=== PATIENT | female | born 1970 | race Caucasian/White ===

== ENCOUNTER → 2023-12-30 15:12 | Outpatient (REF) | payer OTHER, SELFPAY | LOC: HWRAD 15:12 | PROVIDERS: ATTENDING PHYSICIAN Obstetrics & Gynecology; FAMILY PHYSICIAN Family Medicine | DX: N92.4 Excessive bleeding in the premenopausal period (principal) | CPT/HCPCS: 76830; 76856 ==

== ENCOUNTER 2024-01-20 06:21 | Day surgery (SDC) | payer OTHER, SELFPAY ==
[2024-01-20] VITALS (8 sets, daily range): BP systolic 96–118; BP diastolic 49–71; BMI 23.7
[2024-01-20] MEDS: TYLENOL 1000 MG PO (08:50)
[2024-01-20] MEDS: NORMOSOL-R 1000 IV (09:08)
== END 2024-01-20 11:56 | disposition home or self-care (01) ==
LOC: SDS 06:21
PROVIDERS: ATTENDING PHYSICIAN Obstetrics & Gynecology
DX: N93.9 Abnormal uterine and vaginal bleeding, unspecified (principal)
CPT/HCPCS: 58558; 88305

== ENCOUNTER → 2024-09-25 08:13 | Outpatient (REF) | payer OTHER, SELFPAY | LOC: HWRAD 08:13 | PROVIDERS: ATTENDING PHYSICIAN Nurse Practitioner; FAMILY PHYSICIAN Family Medicine | DX: N81.6 Rectocele (principal) | CPT/HCPCS: 76856 ==

== ENCOUNTER → 2025-07-26 08:21 | Outpatient (REF) | payer OTHER, SELFPAY | LOC: HWRAD 08:21 | PROVIDERS: ATTENDING PHYSICIAN Obstetrics & Gynecology; FAMILY PHYSICIAN Family Medicine | DX: N95.0 Postmenopausal bleeding (principal) | CPT/HCPCS: 76830; 76856 ==